=== PATIENT | male | born 1945 | race Caucasian/White ===

== ENCOUNTER 2016-06-16 10:50 | Day surgery (SDC) | payer MEDICARE ==
[~2016-06-16] VITALS: Ht 176.5 cm; Wt 64.4 kg
[~2016-06-16 10:50] MED LIST: 0.9% Sodium Chloride 1,000 ML IV SCH; ASPI-973 PO; BRIM5DRO9 OP; LATA2.5D6 OP; Sodium Chloride LOK Flush 10 mL Syringe IV PRN; TIMO5DRO27 OP; fentaNYL-PF 50 mCg/mL 2 mL Inj IVPUSH PRN
[2016-06-16 11:15] VITALS: BP 116/76; PULSE 53; RESP 14; O2SAT 100
[2016-06-16 11:56] VITALS: BP 100/56; PULSE 49; RESP 12; O2SAT 95
[2016-06-16 11:57] VITALS: BP 110/56; PULSE 51; RESP 12; O2SAT 96
[2016-06-16 12:14] VITALS: BP 96/56; PULSE 54; RESP 12; O2SAT 96
[2016-06-16 12:15] VITALS: BP 101/63; PULSE 54; RESP 12; O2SAT 100
--- NOTE | 2016-06-16 12:15 | ENDO ---
[address] [address] ENDOSCOPY PROCEDURE PATIENT: ADELINE MENG : 1945 MR#: [id number] ADMIT: 06/16/2016 JOB ID: [id number] DATE OF SERVICE: 06/16/2016 PROCEDURE PERFORMED: Colonoscopy. INDICATIONS: Screening. ASA CLASSIFICATION: The patient's ASA classification is II. MALLAMPATI SCORE: Mallampati score was 2. MEDICATIONS: 1. Versed 2 mg. 2. Fentanyl 75 mcg. INSTRUMENT USED: [id number]-H180AL. PREPARATION QUALITY: Good. PROCEDURE DETAILS: After informed consent was obtained, the patient was brought into the GI suite, where he was placed on oxygen via nasal cannula and monitored with continuous pulse oximeter, telemetry, and blood pressure monitoring. A time-out was performed. Then, he was placed in the left lateral decubitus position and medications were administered for sedation. Digital rectal exam with palpation of the prostate was performed which was unremarkable. The colonoscope was then inserted into the rectum and advanced under direct visualization to the cecum, which was identified by the presence of the ileocecal valve and appendiceal orifice. Once the cecum was reached, the colonoscope was withdrawn back into the rectum, as the mucosa and lumen were examined. In the rectum, retroflexion was performed. Following retroflexion, remaining air in the rectum was suctioned, and procedure was completed. FINDINGS: 1. At the hepatic flexure, there was a diminutive polyp that was removed with cold biopsy forceps. 2. In the transverse colon, there was a diminutive polyp that was removed with cold biopsy forceps. 3. Retroflexed views in the rectum revealed large internal hemorrhoids. IMPRESSION: 1. Hepatic flexure polyp. 2. Transverse colon polyp. 3. Large internal hemorrhoids. RECOMMENDATIONS: 1. Fiber-rich diet. 2. Repeat colonoscopy pending polyp pathology results. COMPLICATIONS: None. ESTIMATED BLOOD LOSS: Less than 5 mL.
[2016-06-16 12:19] VITALS: BP 113/66; PULSE 57; RESP 12; O2SAT 98
--- NOTE | 2016-06-19 11:36 | PATH ---
SURGICAL PATHOLOGY Attending Physician:Jessica Barron CASE STATUS: Signed Out PATIENT NAME: ADELINE MENG PID: [id number] : 1945 DATE COLLECTED:06/16/2016 20:21 SPECIMEN: 1: Colon, Biopsy 2: Colon, Biopsy CLINICAL HISTORY: [id number] 1). HEPATIC FLEXURE POLYP 2). TRANSVERSE POLYP FINAL DIAGNOSIS: 1.HEPATIC FLEXURE POLYP: TUBULAR ADENOMA. 2.TRANSVERSE COLON POLYP: HYPERPLASTIC POLYP INVOLVING SINGLE BIOPSY FRAGMENT. ICD10 CODE D12.3 GROSS DESCRIPTION: The specimen is received in two formalin filled containers labeled with the patient's name. 1). The specimen is sublabeled "hepatic flexure polyp" and consists of a 0.3 x 0.3 x 0.2 CM portion of tissue which is entirely submitted in cassette 1A. 2). The specimen is sublabeled "transverse polyp" and consists of 2 portions of tissue which aggregate to 0.3 x 0.3 x 0.3 CM. The specimen is entirely submitted in cassette 2A. 06/16/2016 [facility] MICRO DESCRIPTION: See diagnosis. ICD-9 CODES: CPT CODES: 1: 37411 2: 57234 Electronically Signed Out Wilder Whitaker MD [facility] Pathology [facility] [address], [place] [address] Technical component performed at [facility], [facility] [address], [place], [address]
== END 2016-06-16 23:59 | disposition home or self-care (01) ==
LOC: END 10:50
PROVIDERS: ATTEND Internal Medicine Gastroenterology
DX: Z12.11 Encounter for screening for malignant neoplasm of colon (principal); K64.8 Other hemorrhoids; D12.3 Benign neoplasm of transverse colon; K63.5 Polyp of colon; D68.2 Hereditary deficiency of other clotting factors
CPT/HCPCS: 45380; 99153; G0500; J2250; J3010; J7030

== ENCOUNTER 2016-06-21 13:51 | Emergency (ER) | payer MEDICARE ==
[~2016-06-21] VITALS: Ht 175.3 cm; Wt 65.9 kg
[~2016-06-21 13:51] MED LIST changes: -0.9% Sodium Chloride 1,000 ML IV SCH; -Sodium Chloride LOK Flush 10 mL Syringe IV PRN; -fentaNYL-PF 50 mCg/mL 2 mL Inj IVPUSH PRN
[2016-06-21 14:15] VITALS: BP 112/73; PULSE 57; RESP 12; O2SAT 100
--- NOTE | 2016-06-21 15:51 | ED.REPORT ---
HPI-Abd Pain M 40 and Over Date of Service Jun 21, 2016 ED Provider: Jackson Faria Patient is a 71 year old male who had a colonoscopy 5 days ago who presents to the ED complaining of lower abdominal pain. He has also noticed that his inguinal hernias have been sore lately and he has had a BM with every meal which is abnormal for him. His pain is improved after BM's. Associated symptoms include chills. He denies fever, shaking, dysuria, cough, SOB, or any other symptoms. Nursing Notes Stated Complaint: ABDOMINAL PAIN AFTER COLONOSCOPY-SENT BY Chief Complaint: Male Abdominal Pain Nursing Notes Reviewed: Yes Allergies: Coded Allergies: No Known Drug Allergies (Verified Allergy, Unknown, 06/15/16) Scheduled Aspirin (Aspirin) 81 Mg Tablet 81 MG PO DAILY Brimonidine Tartrate (Brimonidine 0.2% Oph Soln) 5 Ml Drops 1 DROP OP TID Latanoprost (Latanoprost) 2.5 Ml Drops 1 GTT OP HS Miscellaneous Medications Timolol (Betimol) 5 Ml Drops 5 ML OP General Time Seen by MD: 15:50 Chief Complaint Abdominal pain Hx Obtained From: Patient Arrived By: Walk-in Sudden in Onset?: Yes Onset Occurred: 4 days ago Symptom Duration: Since onset Location: : Abdomen lower Recent Healthcare: Previous surgery Similar Sx Previous: No Past Medical History Past Medical History Arthritis Past Surgical History Knee surgeries Hernia Colonoscopy 05/2016 Dr. Bradley Smoking History Never Smoker Social History Alcohol Use: "Social" Other Social History: Good social support Ambulatory Status Independent Review of Systems Constitutional: Reports: Chills, Denies: Fever Respiratory: Denies: Non-productive cough, Shortness of breath GI: Reports: Abdominal pain Male: Denies Dysuria Complete sys rev & neg: except as marked. Neurologic: Denies: Shaking Physical Exam Initial Vital Signs Vital Signs (First) Date Time Temp Pulse Resp B/P Pulse Ox O2 Delivery O2 Flow Rate FiO2 06/21/16 14:15 36.7 57 12 112/73 100 Room Air Initial VS: Reviewed Head / Eyes: Atraumatic, Normocephalic Skin: Warm, Dry Neurologic: Alert, Oriented, Nonfocal Psychiatric: Mood/affect normal, Behavior normal, Normal thought content General/Constitutional: Awake, Alert, Well developed Respiratory / Chest: No respiratory distress Cardiovascular: Heart rate NL, Regular rhythm Abdomen: No guarding, No rebound, No hernia Tenderness/Guarding/Rebound: Positive: Tender diffuse (Mild ) Back: Inspection NL Interpretation & Diagnostics Lab Results Interpretation Result Diagram: 06/21/16 1605 06/21/16 1605 Test 06/21/16 16:05 06/21/16 16:21 White Blood Count 3.4th/mm3 (3.8-10.1) Red Blood Count 4.47mil/mm3 (4.40-5.80) Hemoglobin 14.2g/dL (13.8-17.2) Hematocrit 41.4% (41.0-50.0) Mean Corpuscular Volume 92.6fL (81-100) Mean Corpuscular Hemoglobin 31.8pg (27.0-35.0) Mean Corpuscular Hemoglobin Concent 34.3% (32.0-37.0) Red Cell Distribution Width 12.1% (12.3-15.4) Platelet Count 214bil/L (150-400) Neutrophils (%) (Auto) 51.0% (40-74) Lymphocytes (%) (Auto) 30.7% (14-46) Monocytes (%) (Auto) 14.2% (4-12) Eosinophils (%) (Auto) 3.2% (0-5) Basophils (%) (Auto) 0.9% (0-3) Sodium Level 137mEq/L (134-144) Potassium Level 4.1mEq/L (3.5-5.2) Chloride Level 98mEq/L (97-108) Carbon Dioxide Level 28mmol/L (18-29) Blood Urea Nitrogen 16mg/dL (8-27) Creatinine 0.73mg/dL (0.76-1.27) Estimat Glomerular Filtration Rate 113mL/min (>59) Glucose Level 98mg/dL (60-99) Calcium Level 8.8mg/dL (8.5-10.1) Magnesium Level 2.2mg/dL (1.6-2.6) Total Bilirubin 0.2mg/dL (0.0-1.2) Aspartate Amino Transf (AST/SGOT) 28U/L (0-50) Alanine Aminotransferase (ALT/SGPT) 21U/L (0-44) Alkaline Phosphatase 54U/L (25-160) Total Protein 7.2g/dL (6.4-8.4) Albumin 4.0g/dL (3.4-5.0) Urine Color Yellow (YELLOW) Urine Appearance Clear (CLEAR,HAZY) Urine pH 6.5 (5.0-8.0) Urine Specific [place] <1.005 (1.003-1.035) Urine Protein Negativemg/dL (NEG,TRACE) Urine Glucose (UA) Negativemg/dL (NEGATIVE) Urine Ketones Negativemg/dL (NEGATIVE) Urine Occult Blood Negative (NEGATIVE) Urine Nitrite Negative (NEGATIVE) Urine Bilirubin Negative (NEGATIVE) Urine Urobilinogen Normalmg/dL (NORMAL) Urine Leukocyte Esterase Negative (NEGATIVE) Urine RBC 0-2/hpf (0-2) Urine WBC 0-5/hpf (0-5) Urine Epithelial Cells Few/hpf (NONE-MOD) Urine Crystals None seen (NONE SEEN) Urine Bacteria Few/hpf (NONE-FEW) Urine Hyaline Casts None/lpf (NONE) Urine Granular Casts None seen (NONE SEEN) Urine Waxy Casts None seen (NONE SEEN) Urine Red Blood Cell Casts None seen (NONE SEEN) Urine White Blood Cell Casts None seen (NONE SEEN) Urine Mucus None seen (None Seen) Urine Trichomonas None seen (NONE SEEN) Urine Yeast Nn (NONE SEEN) Urinalysis Comment None Urine Culture Reflexed Not indicated X-Ray Abdominal Interpretation 3 view: Nonspecific bowel gas pattern chest x-ray clear Re-Eval/Medical Decision Med Decision/Clinical Course Benign abdominal exam, reassuring labs; nonspecific bowel gas pattern, it seems unlikely that this is any life-threatening pathology, the patient reports frequent loose stools he does have some fecal retention on x-ray although it does not fit the clinical picture. Patient is feeling better and we discharged to follow-up with GI or return to ER if worse. Time of Eval: 17:28 )( Re-Eval Abdomen: Soft, No guarding, No rebound Re-Evaluation/Progress Note: Rechecked patient. He is feeling better. Discussed plan for discharge. Patient understands and agrees with plan. All questions addressed at this time. Counseled Regarding: Diagnosis, Lab results, Need for follow-up, When/why to return to ED Discharge & Departure Primary Impression: Pain, abdominal, nonspecific Disposition: Home Vital Signs - All Vital Signs Date Time Temp Pulse Resp B/P Pulse Ox O2 Delivery O2 Flow Rate FiO2 06/21/16 17:50 36.7 70 16 132/74 100 Room Air 06/21/16 17:49 36.7 70 16 132/74 100 06/21/16 14:15 36.7 57 12 112/73 100 Room Air )( All Prior VS Reviewed: Yes Condition: Improved Additional Instructions: Labs and imaging do not show any obvious life-threatening diagnosis. Call your GI doctor in the morning for further management. Return to the ER for high fever, severe uncontrolled pain, or any other concerns. Referrals: Jose Dey MD (PCP) Scribe Attestation Portions of this note were transcribed by Ann Kwan. I, Dr. Faria personally performed the history, physical exam and medical decision-making; I reviewed and confirmed the accuracy of the information in the transcribed note. Signed by: Ann Kwan 06/21/2016, 1834 copies to: Jose Dey MD, Timothy S DO Jun 21, 2016 15:51 ANN KWAN Jun 21, 2016 16:04
[2016-06-21 16:18] LABS: BASOPHILS % (AUTO) 0.9 % (0-3); EOSINOPHILS % (AUTO) 3.2 % (0-5); MONOCYTES % (AUTO) 14.2 % (4-12); Mean Corpuscular Hemoglobin 31.8 pg (27.0-35.0); Mean Corpuscular Volume 92.6 fL (81-100); Platelet Count 214 bil/L (150-400)
[2016-06-21 16:35] LABS: APPEARANCE,URINE CLEAR (CLEAR,HAZY); COLOR,URINE YELLOW (YELLOW); OCCULT BLOOD,URINE NEGATIVE (NEGATIVE); PH,URINE 6.5 (5.0-8.0); UROBILINOGEN,URINE NORMAL (NORMAL); YEAST,URINE NN (NONE SEEN)
[2016-06-21 16:38] LABS: Magnesium 2.2 mg/dL (1.6-2.6)
[2016-06-21 17:49] VITALS: BP 132/74; PULSE 70; RESP 16; O2SAT 100
[2016-06-21 17:50] VITALS: BP 132/74; PULSE 70; RESP 16; O2SAT 100
--- NOTE | 2016-06-21 19:12 | DRSVH ---
PROCEDURE: X-RAY ACUTE ABDOMINAL SERIES ([id number]) INDICATIONS: abdominal pain TECHNIQUE: One view chest and two views of the abdomen were acquired. COMPARISON: None. FINDINGS: Surgical changes and devices: None. Chest: Lungs are clear. Heart size is normal. No pleural effusions. No pneumoperitoneum. Abdomen: Bowel gas pattern is normal. No suspicious calcifications. Visualized solid organ contour s appear normal. Bones: No suspicious bony lesions. IMPRESSION: A large amount of stool in colon. Dictated by: Marina Wilkins M.D. on 06/21/2016 at 19:10 Approved by: Marina Wilkins M.D. on 06/21/2016 at 19:11
== END 2016-06-21 17:51 | disposition home or self-care (01) ==
LOC: SED 13:51
DX: R10.84 Generalized abdominal pain (principal); Z79.82 Long term (current) use of aspirin